=== PATIENT | male | born 1965 | race Caucasian/White ===

== ENCOUNTER → 2024-05-23 13:48 | Outpatient (REF) | payer OTHER, SELFPAY | LOC: HWRAD 13:48 | PROVIDERS: ATTENDING PHYSICIAN Specialist; FAMILY PHYSICIAN Family Medicine | DX: N39.0 Urinary tract infection, site not specified (principal) | CPT/HCPCS: 76770 ==

== ENCOUNTER → 2025-05-26 14:56 | Outpatient (REF) | payer OTHER, SELFPAY | LOC: RCS 14:56 | PROVIDERS: ATTENDING PHYSICIAN Internal Medicine Cardiovascular Disease; FAMILY PHYSICIAN Family Medicine | DX: R00.1 Bradycardia, unspecified (principal) | CPT/HCPCS: 93017 ==